=== PATIENT | male | born 1995 | race American Indian/Alaskan Native ===

== ENCOUNTER 2018-03-03 03:56 | Emergency (ER) | payer SELFPAY ==
[2018-03-03 04:02] VITALS: BP 128/84
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
== END 2018-03-03 05:00 | disposition home or self-care (01) ==
LOC: ED 03:56
DX: Z20.828 Contact with and (suspected) exposure to other viral communicable diseases (principal); F17.200 Nicotine dependence, unspecified, uncomplicated; Z91.030 Bee allergy status
CPT/HCPCS: 99281